=== PATIENT | male | born 2000 | race Caucasian/White ===

== ENCOUNTER 2021-11-29 14:38 | Outpatient (REF) | payer BC, SELFPAY ==
--- NOTE | ~2021-11-29 | XR_ITS ---
EXAMINATION: XR KNEE, LEFT CLINICAL INFORMATION: Left knee pain. COMPARISON: None TECHNIQUE: Four views of the left knee. FINDINGS: Bones and soft tissues are normal. No fracture or joint effusion. Alignment is anatomic. Joint spaces are well maintained. No abnormal soft tissue calcification. XR/XR knee LT 4V IMPRESSION: Unremarkable left knee.
== END 2021-11-29 14:39 | disposition home or self-care (01) ==
LOC: HO.HMGCX 14:38
PROVIDERS: PCP Nurse Practitioner Family; Visit Provider Nurse Practitioner Family
DX: M25.562 Pain in left knee (principal)
CPT/HCPCS: 73564

== ENCOUNTER 2021-12-15 17:52 | Outpatient (REF) | payer BC, SELFPAY ==
--- NOTE | ~2021-12-15 | MR_ITS ---
EXAMINATION: MR KNEE WITHOUT CONTRAST, LEFT CLINICAL INFORMATION: Hyperextension. Left knee pain and swelling. COMPARISON: Left knee radiographs dated 11/29/2021. TECHNIQUE: MRI of the knee without contrast was performed using routine sequences on a high-field scanner. FINDINGS: MENISCI: Medial Meniscus: Intact. Lateral Meniscus: Intact. LIGAMENTS: Cruciate: Intact. Collateral: Intact. EXTENSOR MECHANISM: Intact quadriceps and patellar tendons. Normal patellofemoral alignment. ARTICULAR CARTILAGE/BONE: Patellofemoral Compartment: Normal. Medial Compartment: Normal. Lateral Compartment: Normal. JOINT FLUID AND BURSAE: Trace joint effusion. Trace Gardiner's cyst. MR/MR knee LT wo con IMPRESSION: 1. No acute meniscal or ligamentous injury. 2. Trace joint effusion and trace Gardiner's cyst.
== END 2021-12-15 17:53 | disposition home or self-care (01) ==
LOC: HO.MRI 17:52
PROVIDERS: Visit Provider Nurse Practitioner Family
DX: M25.562 Pain in left knee (principal)
CPT/HCPCS: 73721

== ENCOUNTER 2022-01-24 09:15 | Outpatient (REF) | payer BC, SELFPAY ==
[2022-01-24 15:57] LABS: Influenza A PCR NEGATIVE (Negative); Influenza B PCR NEGATIVE (Negative); Resp Syncy Virus RNA Qual PCR NEGATIVE (Negative); SARS COV2 PCR INHOUSE POSITIVE (Negative)
== END 2022-01-24 09:16 | disposition home or self-care (01) ==
LOC: HO.LAB 09:15
PROVIDERS: Visit Provider Nurse Practitioner Family
DX: Z20.822 Contact with and (suspected) exposure to COVID-19 (principal); J06.9 Acute upper respiratory infection, unspecified
CPT/HCPCS: 0241U

== ENCOUNTER → 2024-07-16 07:05 | Outpatient (BNVA) | payer BC, SELFPAY | PROVIDERS: PCP Nurse Practitioner Family; Visit Provider Nurse Practitioner Family | DX: Z13.89 Encounter for screening for other disorder (principal) ==

== ENCOUNTER → 2024-07-20 19:29 | Outpatient (BNV) | payer BC, SELFPAY | PROVIDERS: PCP Nurse Practitioner Family; Visit Provider Radiology Diagnostic Radiology | DX: M54.50 Low back pain, unspecified (principal) | CPT/HCPCS: 72148 ==

== ENCOUNTER 2024-07-20 19:30 | Outpatient (REF) | payer BC, SELFPAY ==
--- NOTE | ~2024-07-20 | MR_ITS ---
CLINICAL HISTORY: T14.90XA - Injury, unspecified, initial encounter MR lumbar spine without gadolinium Comparison: None Findings: No scoliosis or spondylolisthesis. No acute fracture or pathologic bone lesion. Cauda equina and conus medullaris within normal limits. No significant spinal canal or foraminal stenoses. No significant degenerative change. Paraspinous musculature intact. IMPRESSION: No acute findings. This document has been electronically signed by: Mike oMra MD on 07/20/2024 20:50:26
--- OUTSIDE RECORDS SUMMARY | 2024-07-20 19:36 | XMS_ITS | Clinical Summary ---
Author Organization [facility] Address [address] [place] [id number] Phone Care Team Providers Care Gathering Machine Feeder Name Role Phone Unavailable Primary Care Provider Unavailabl e Immunizations Immunization Administration Dates Next Due DTaP 5 01/22/2002, 0,1998,05/26,1998 HPV Vaccine 9 Valent 10/27/2014 HPV, Quadrivalent 10/21/2013,10/08/2012 Hep A, ped/adol 10/21/2013,08/17/2010 Hep B, ped/adol 1998,1998,1998 Hib (PRP-T) 05/02/1999, 9,1998,03/24 IPV 01/22/2002,199 9,1998,03/24 Influenza, injectable, quadr ivalent, preservative free 10/21/2013 MMR 01/22/2002,01/23/1999 Meningococcal Conj (Menactra) MCV4P 10/27/2014,0 07/27/2009 Tdap 07/27/2009 Varicella 04/14/2008,01/23/1999 Family History Relation Name Status Comments Father Alive Father: Alive a nd well Maternal Grandfather Materna l grandfather: Diabetes mellitus Mother Alive Mother: Hyperli pidemia Other Family history of Eczema, Family history of Hyperlipidemia, Family history of Dental caries, No family history of CVA (Stroke), Family history of Heart disease, No family history of Sudden /[place] under age 55 Paternal Grandfather Paterna l grandfather: cardiac/diabetes Paternal Grandmother Paterna l grandmother: Hypertension Social History Tobacco Use Types Packs/Day Years Used Date Smoking Tobacco: Never Comments:Never smoker Sex and Gender Information Value Date Recorded Sex Assigned at Not on file Legal Sex Male 5:13 PM EDT Gender Identity Not on file Sexual Orientation Not on file Last Filed Vital Signs Vital Sign Reading Time Taken Comments Blood Pressure 107/68 11/29/2015 12:00 AM EDT Pulse 58 11/29/2015 12:00 AM EDT Temperature 36.4 ??C (97.6 ??F) 10/21/2013 12:00 AM E DT Respiratory Rate - - Oxygen Saturation - - Inhaled Oxygen Concentration - - Weight 83.9 kg (185 lb) 11/29/2015 12:00 AM EDT Height 170.8 cm (5' 7.25 ) 11/29/2015 12:00 AM E DT Body Mass Index 28.76 11/29/2015 12:00 AM EDT Plan of Treatment Health Maintenance Due Date Last Done Comments DTaP,Tdap,and Td Vaccines (7 - Td or Tdap) 07/28/2019 07/27/2009, 01/22/2002, 07/28/1999, Additional history exists Influenza Vaccines (#1) 2023 10/21/2013 COVID-19 Vaccine ( season) 2023 Hepatitis B Vaccines Completed 1998, 1998, 1998 HIB Vaccines Completed 05/02/1999, 07/12, 1998, Additional history exists IPV Vaccines Completed 01/22/2002, 01/11, 1998, Additional history exists MMR Vaccines Completed 01/22/2002, 01/23/1999 Varicella Vaccines Completed 04/14/2008, 01/23/1999 Hepatitis A Vaccines Completed 10/21/2013, 08/18/19 11 HPV Vaccines Completed 10/27/2014, 10/12, 10/08/2012 Meningococcal Vaccine Completed 10/27/2014, 010 Men B Vaccine Aged Out No longer elig ible based on patient's age to complete this topic Pneumococcal Vaccine Aged Out No long er eligible based on patient's age to complete this topic
== END 2024-07-20 19:31 | disposition home or self-care (01) ==
LOC: HO.MRI 19:30
PROVIDERS: PCP Nurse Practitioner Family; Visit Provider Nurse Practitioner Family
DX: M54.50 Low back pain, unspecified (principal); M54.10 Radiculopathy, site unspecified; T14.90XA Injury, unspecified, initial encounter
CPT/HCPCS: 72148